=== PATIENT | male | born 1930 | race Caucasian/White ===

== ENCOUNTER 2017-10-14 10:33 | Inpatient (IN) | payer OTHER ==
[~2017-10-14] VITALS: Ht 170.2 cm; Wt 72.5 kg
[2017-10-14] MEDS ORDERED: cloNIDine HCL 0.1 MG TAB PO ONE (10:45)
[2017-10-14 11:16] LABS: Basophils # (auto) 0.1 uL; Eosinophils # (auto) 0.1 uL; Eosinophils % (auto) 1.5 % (0.0-7.0); Hematocrit 41.5 % (41.0-53.0); Hemoglobin 13.7 g/dL (13.5-17.5); Lymphocytes # (auto) 0.6 uL; Lymphocytes % (auto) 9.8 % (10.0-50.0); Mean Corpuscular Hemoglobin 28.5 pg (28.0-32.0); Mean Corpuscular Volume 86.5 fL (80.0-100.0); Monocytes # (auto) 0.8 uL; Monocytes % (auto) 11.4 % (0.0-12.0); Neutrophils % (auto) 76.3 % (37.0-80.0); Platelet Count (auto) 219 10^3/uL (140-450); Red Cell Distribution Width 14.4 % (11.8-14.3); White Blood Cell 6.6 10^3/uL (4.4-10.8)
[2017-10-14 11:30] LABS: Alanine Aminotransferase 14 U/L (16-61); Albumin 3.5 g/dL (3.4-5.0); Alkaline Phosphatase 69 U/L (45-117); Amylase 53 U/L (25-115); Anion Gap 9 (5-15); Aspartate Aminotransferase 9 U/L (15-37); Bilirubin, Total 0.8 mg/dL (0.2-1.0); Blood Urea Nitrogen 16 mg/dL (7-18); Calcium 8.7 mg/dL (8.5-10.1); Carbon Dioxide 25 mmol/L (21-32); Chloride 104 mmol/L (98-107); GFR African American 84 mL/min; GFR Non-African American 69 mL/min; Glucose 96 mg/dL (74-106); Lipase 184 U/L (73-393); Potassium 3.9 mmol/L (3.5-5.1); Sodium 138 mmol/L (136-145); Total Protein 6.8 g/dL (6.4-8.2)
[2017-10-14 11:40] LABS: INR 0.98 (0.9-1.15); Prothrombin Time 10.7 sec (9.37-12.3)
[2017-10-14] MEDS ORDERED: TEMAZEPAM 15 MG CAP PO PRN (12:45)
[2017-10-14] MEDS ORDERED: NITROGLYCERIN 0.4 MG SL TAB SL PRN (12:45)
[2017-10-14] MEDS ORDERED: MORPHINE SULFATE 4 MG/ML SYR/VIAL IV PRN ×2 (12:45)
[2017-10-14] MEDS ORDERED: ONDANSETRON HCL 4 MG/2 ML VIAL IV PRN (12:45)
[2017-10-14] MEDS ORDERED: HYDROcodone-ACET 5/325MG TAB PO PRN (12:45)
[2017-10-14] MEDS ORDERED: DEXTROSE (50%) 50ML SYRG IV PRN (12:45)
[2017-10-14] MEDS ORDERED: cefTRIAXone 1GM/10ml IVPUSH 10 ML IV ONE (13:00)
[2017-10-14] MEDS ORDERED: cloNIDine HCL 0.1 MG TAB PO PRN (13:00)
[2017-10-14] MEDS: FAMOTIDINE 20 MG TAB PO SCH (13:33)
[2017-10-14] MEDS: metroNIDAZOLE 500MG/100ML 100 ML IV SCH ×2 (13:33→22:51)
[2017-10-14] MEDS: SODIUM CHLOR 0.9% PF (SALINE LOCK) 10ML VIAL IV SCH ×2 (14:37→22:51)
[2017-10-14 15:19] VITALS: BP 161/89
[2017-10-14] MEDS: InsuLIN REG 1unit/0.01ml Soln (100units/ml) SC SCH ×2 (17:00→22:00)
[2017-10-14] MEDS: ACCU-CHEK COMFORT CURVE STRIP VI SCH ×2 (17:17→22:52)
[2017-10-14 17:56] LABS: Urine Bacteria NONE SEEN /hpf (None Seen); Urine Blood Negative /uL (Negative); Urine Mucus FEW (None Seen); Urine Specific Gravity 1.013 (1.001-1.035); Urine WBC 3 /hpf (0 - 3)
[2017-10-14] MEDS: TAMSULOSIN HYDROCHLORIDE 0.4 MG CAP PO SCH (18:17)
[2017-10-14 22:00] VITALS: BP 114/63
[2017-10-14] MEDS: ATORVASTATIN 20 MG TAB PO SCH (22:51)
[2017-10-14] MEDS: ASCORBIC ACID 500 MG TAB PO SCH (22:52)
[2017-10-14] MEDS ORDERED: SIMV-8 PO (23:35)
[2017-10-14] MEDS ORDERED: METF-370 PO (23:35)
[2017-10-14] MEDS ORDERED: LISI2.5T47 PO (23:35)
[2017-10-14] MEDS ORDERED: AML5T PO (23:35)
[2017-10-15 05:00] VITALS: BP 118/66
[2017-10-15] MEDS: metroNIDAZOLE 500MG/100ML 100 ML IV SCH (05:22)
[2017-10-15] MEDS: SODIUM CHLOR 0.9% PF (SALINE LOCK) 10ML VIAL IV SCH ×3 (05:23→21:41)
[2017-10-15 06:04] LABS: Basophils # (auto) 0.1 uL; Basophils % (auto) 1.1 % (0.0-2.0); Eosinophils # (auto) 0.1 uL; Eosinophils % (auto) 2.5 % (0.0-7.0); Hematocrit 37.7 % (41.0-53.0); Hemoglobin 12.6 g/dL (13.5-17.5); Lymphocytes # (auto) 0.9 uL; Lymphocytes % (auto) 16.4 % (10.0-50.0); Mean Corpuscular Hgb Conc. 33.5 g/dL (32.0-36.0); Mean Corpuscular Volume 86.5 fL (80.0-100.0); Monocytes # (auto) 0.8 uL; Monocytes % (auto) 13.6 % (0.0-12.0); Neutrophils # (auto) 3.7 uL; Neutrophils % (auto) 66.4 % (37.0-80.0); Nucleated Red Blood Cells % 0.1 %; Platelet Count (auto) 196 10^3/uL (140-450); Red Blood Cells 4.36 10^6/uL (4.5-5.90); Red Cell Distribution Width 14.3 % (11.8-14.3); White Blood Cell 5.5 10^3/uL (4.4-10.8)
[2017-10-15] MEDS: InsuLIN REG 1unit/0.01ml Soln (100units/ml) SC SCH ×4 (06:09→22:00)
[2017-10-15] MEDS: ACCU-CHEK COMFORT CURVE STRIP VI SCH ×4 (06:09→21:42)
[2017-10-15 06:16] LABS: Potassium 4.2 mmol/L (3.5-5.1)
[2017-10-15 06:20] LABS: Calcium 8.8 mg/dL (8.5-10.1)
[2017-10-15 06:29] LABS: Bilirubin, Total 0.6 mg/dL (0.2-1.0); Total Protein 5.7 g/dL (6.4-8.2)
[2017-10-15] MEDS ORDERED: HEPARIN IN NS 1000Units/500mL 1,500 ML ONE (07:18)
[2017-10-15] MEDS ORDERED: IODIXANOL 320MG/ML 100ML BTL IV ONE (07:18)
[2017-10-15] MEDS ORDERED: LIDOCAINE 2%HCL (LOCAL ANESTH.) INJ 20ML MDV ONE (07:18)
[2017-10-15] MEDS ORDERED: ANGIOMAX 250 MG VIAL IV ONE (07:47)
[2017-10-15] MEDS ORDERED: MIDAZOLAM HCL 1MG/1ML-2 ML VIAL ONE (07:48)
[2017-10-15] MEDS ORDERED: fentaNYL CITRATE 100 MCG/2 ML VL ONE (07:48)
[2017-10-15] MEDS ORDERED: SODIUM CHL 0.9% 0 ML ONE (07:48)
[2017-10-15] MEDS ORDERED: VERAPAMIL 2.5MG/ML INJ 2ML VIAL IV ONE (07:48)
[2017-10-15] MEDS ORDERED: HEPARIN SODIUM (PORCINE) 5000 UNITS/ML 1ML VIAL ONE (08:07)
[2017-10-15] MEDS ORDERED: cefTRIAXone 1GM/10ml IVPUSH 10 ML IV SCH (09:00)
[2017-10-15] MEDS: ASCORBIC ACID 500 MG TAB PO SCH ×2 (11:23→21:42)
[2017-10-15] MEDS: ZINC SULFATE 220 MG CAP PO SCH (11:23)
[2017-10-15] MEDS: ACETAMINOPHEN 325 MG TAB PO PRN ×2 (11:24→17:42)
[2017-10-15] MEDS: LISINOPRIL 5 MG TAB PO SCH (11:24)
[2017-10-15] MEDS: FINASTERIDE 5 MG TAB PO SCH (11:24)
[2017-10-15] MEDS: FAMOTIDINE 20 MG TAB PO SCH (11:25)
[2017-10-15] MEDS: MULTIPLE VITAMIN TAB PO SCH (11:25)
[2017-10-15] MEDS: amLODIPine BESYLATE 5 MG TAB PO SCH (11:25)
[2017-10-15 12:21] VITALS: BP 122/58
[2017-10-15] MEDS: SOD CHL 0.45% 1,000 ML IV SCH (14:30)
[2017-10-15] MEDS: TAMSULOSIN HYDROCHLORIDE 0.4 MG CAP PO SCH (17:59)
[2017-10-15] MEDS: ATORVASTATIN 20 MG TAB PO SCH (21:42)
[2017-10-15 22:34] VITALS: BP 131/72
[2017-10-16 05:42] LABS: BUN/Creatinine Ratio 15.5; Potassium 3.9 mmol/L (3.5-5.1)
[2017-10-16] MEDS: SODIUM CHLOR 0.9% PF (SALINE LOCK) 10ML VIAL IV SCH ×2 (06:00→14:00)
[2017-10-16] MEDS: ACCU-CHEK COMFORT CURVE STRIP VI SCH ×3 (06:41→17:00)
[2017-10-16] MEDS: InsuLIN REG 1unit/0.01ml Soln (100units/ml) SC SCH ×3 (06:42→17:00)
[2017-10-16 08:00] VITALS: BP 141/72
[2017-10-16 09:00] VITALS: BP 141/86
[2017-10-16] MEDS ORDERED: IOHEXOL 300 MG/ML 100ML BOTTLE IJ ONE (09:35)
[2017-10-16] MEDS: FINASTERIDE 5 MG TAB PO SCH (10:00)
[2017-10-16] MEDS: MULTIPLE VITAMIN TAB PO SCH (10:00)
[2017-10-16] MEDS: amLODIPine BESYLATE 5 MG TAB PO SCH (10:00)
[2017-10-16] MEDS: ZINC SULFATE 220 MG CAP PO SCH (10:00)
[2017-10-16] MEDS: ASCORBIC ACID 500 MG TAB PO SCH (10:00)
[2017-10-16] MEDS: LISINOPRIL 5 MG TAB PO SCH (10:00)
[2017-10-16] MEDS: FAMOTIDINE 20 MG TAB PO SCH (10:00)
[2017-10-16] MEDS: SOD CHL 0.45% 1,000 ML IV SCH (10:30)
[2017-10-16 13:00] VITALS: BP 141/72
[2017-10-16 17:00] VITALS: BP 141/85
[2017-10-16 17:30] VITALS: BP 141/85
[2017-10-16] MEDS: TAMSULOSIN HYDROCHLORIDE 0.4 MG CAP PO SCH (18:00)
[2017-11-10] MEDS ORDERED: FINA5TAB4 PO (10:07)
[2017-11-10] MEDS ORDERED: TAMS0.4C36 PO (10:07)
== END 2017-10-16 18:15 | disposition home or self-care (01) | DRG 287 ==
LOC: ER 10:33 → TELE 10:34 → TELE-WESTW 21:14
PROVIDERS: ADMIT Internal Medicine; ATTEND Hospitalist
PROC: 4A023N7 Measurement of Cardiac Sampling and Pressure, Left Heart, Percutaneous Approach (ICD-10-PCS; principal; 2017-10-15)
PROC: B2111ZZ Fluoroscopy of Multiple Coronary Arteries using Low Osmolar Contrast (ICD-10-PCS; 2017-10-15)
DX: I25.10 Atherosclerotic heart disease of native coronary artery without angina pectoris (principal); D68.69 Other thrombophilia; E11.22 Type 2 diabetes mellitus with diabetic chronic kidney disease; I48.92 Unspecified atrial flutter; J98.11 Atelectasis; C64.1 Malignant neoplasm of right kidney, except renal pelvis; I13.10 Hypertensive heart and chronic kidney disease without heart failure, with stage 1 through stage 4 chronic kidney disease, or unspecified chronic kidney disease; I48.91 Unspecified atrial fibrillation; K57.30 Diverticulosis of large intestine without perforation or abscess without bleeding; N18.2 Chronic kidney disease, stage 2 (mild); N40.0 Benign prostatic hyperplasia without lower urinary tract symptoms; I70.8 Atherosclerosis of other arteries; E78.5 Hyperlipidemia, unspecified; K40.90 Unilateral inguinal hernia, without obstruction or gangrene, not specified as recurrent; K44.9 Diaphragmatic hernia without obstruction or gangrene; Z79.899 Other long term (current) drug therapy; Z82.49 Family history of ischemic heart disease and other diseases of the circulatory system
CPT/HCPCS: 36415; 71045; 74176; 74178; 80048; 80053; 80202; 81001; 82150; 82962; 83036; 83690; 83880; 84443; 84484; 85025; 85610; 87040; 93005; 93306; 93458; 96365; 99152; J2250; J3490; Q9967

== ENCOUNTER 2017-11-13 12:02 | Inpatient (IN) | payer OTHER ==
[2017-11-10 12:29] LABS: Urine Bacteria NONE SEEN /hpf (None Seen); Urine Blood Negative /uL (Negative); Urine Mucus FEW (None Seen); Urine Specific Gravity 1.027 (1.001-1.035); Urine WBC 34 /hpf (0 - 3)
[2017-11-10 12:32] LABS: Basophils # (auto) 0.1 uL; Basophils % (auto) 1.1 % (0.0-2.0); Eosinophils # (auto) 0.1 uL; Eosinophils % (auto) 2.4 % (0.0-7.0); Hematocrit 41.9 % (41.0-53.0); Hemoglobin 13.7 g/dL (13.5-17.5); Lymphocytes # (auto) 0.9 uL; Lymphocytes % (auto) 14.7 % (10.0-50.0); Mean Corpuscular Hemoglobin 28.6 pg (28.0-32.0); Mean Corpuscular Hgb Conc. 32.6 g/dL (32.0-36.0); Mean Corpuscular Volume 87.7 fL (80.0-100.0); Monocytes # (auto) 0.8 uL; Monocytes % (auto) 13.7 % (0.0-12.0); Neutrophils # (auto) 3.9 uL; Neutrophils % (auto) 68.1 % (37.0-80.0); Platelet Count (auto) 221 10^3/uL (140-450); Red Blood Cells 4.78 10^6/uL (4.5-5.90); Red Cell Distribution Width 15.1 % (11.8-14.3); White Blood Cell 5.8 10^3/uL (4.4-10.8)
[2017-11-10 12:40] LABS: INR 0.98 (0.9-1.15); Partial Thromboplastin Time 27.5 sec (22.64-33.71); Prothrombin Time 10.7 sec (9.37-12.3)
[2017-11-10 12:43] LABS: BUN/Creatinine Ratio 13.8; Calcium 8.6 mg/dL (8.5-10.1); Potassium 3.9 mmol/L (3.5-5.1)
[~2017-11-13] VITALS: Ht 167.6 cm; Wt 74.6 kg
[~2017-11-13 12:02] MED LIST: AML5T PO; FINA5TAB4 PO; LISI2.5T47 PO; METF-370 PO; SIMV-8 PO; TAMS0.4C36 PO
[2017-11-13] MEDS ORDERED: ceFOXitin 2GM/100ML 100 ML IV ONE (12:54)
[2017-11-13] MEDS ORDERED: diphenhdrAMINE HCL 50 MG/1 ML VL IV PRN (15:30)
[2017-11-13] MEDS ORDERED: MORPHINE SULFATE 4 MG/ML SYR/VIAL IV PRN (15:30)
[2017-11-13] MEDS ORDERED: CEFOXITIN SODIUM 1 GM in D5W 5% 50 ML IV SCH (15:30)
[2017-11-13] MEDS ORDERED: DEXTROSE (50%) 50ML SYRG IV PRN (15:30)
[2017-11-13] MEDS ORDERED: ONDANSETRON HCL 4 MG/2 ML VIAL IV PRN (15:30)
[2017-11-13] MEDS ORDERED: PROPOFOL 10 MG/ML 20 ML IV ONE (15:53)
[2017-11-13] MEDS ORDERED: ROCURONIUM 10MG/ML 10ML VIAL IV ONE (15:53)
[2017-11-13] MEDS ORDERED: fentaNYL CITRATE 100 MCG/2 ML VL ONE ×2 (15:53→15:55)
[2017-11-13] MEDS ORDERED: MIDAZOLAM HCL 1MG/1ML-2 ML VIAL ONE (15:53)
[2017-11-13] MEDS ORDERED: BUPIVACAINE 0.25% INJ 50ML VIAL ONE (16:59)
[2017-11-13] MEDS: ACCU-CHEK COMFORT CURVE STRIP VI SCH ×2 (17:00→22:00)
[2017-11-13] MEDS: InsuLIN REG 1unit/0.01ml Soln (100units/ml) SC SCH (17:00)
[2017-11-13] MEDS ORDERED: MORPHINE SULFATE INJECTION 1 ML ONE (17:03)
[2017-11-13] MEDS: MORPHINE SULFATE 4 MG/ML SYR/VIAL ONE ×2 (18:37→18:48)
[2017-11-13] MEDS ORDERED: ATORVASTATIN 20 MG TAB PO SCH (22:00)
[2017-11-13] MEDS ORDERED: InsuLIN REG 1unit/0.01ml Soln (100units/ml) SC SCH (22:00)
[2017-11-13 23:10] VITALS: BP 147/75
[2017-11-13] MEDS: SOD CHL 0.45% 1,000 ML IV SCH ×2 (23:16→23:47)
[2017-11-13] MEDS: ACETAMINOPHEN/CODEINE#3 (300/30mg) TAB PO PRN (23:52)
[2017-11-14 04:28] VITALS: BP 128/79
[2017-11-14 06:15] LABS: BUN/Creatinine Ratio 9.1; Calcium 8.6 mg/dL (8.5-10.1); Potassium 4.7 mmol/L (3.5-5.1)
[2017-11-14] MEDS: ACCU-CHEK COMFORT CURVE STRIP VI SCH ×3 (06:51→17:00)
[2017-11-14] MEDS: InsuLIN REG 1unit/0.01ml Soln (100units/ml) SC SCH ×3 (06:51→17:00)
[2017-11-14] MEDS: SOD CHL 0.45% 1,000 ML IV SCH (07:16)
[2017-11-14 08:00] VITALS: BP 135/71
[2017-11-14] MEDS ORDERED: metFORMIN HYDROCHLORIDE 500 MG TAB PO SCH (08:00)
[2017-11-14 09:00] VITALS: BP 126/63
[2017-11-14] MEDS ORDERED: LISINOPRIL 5 MG TAB PO SCH (10:00)
[2017-11-14] MEDS ORDERED: PATIENTS OWN MEDICATION (Simvastatin 20 MG) PO SCH (10:00)
[2017-11-14] MEDS ORDERED: amLODIPine BESYLATE 5 MG TAB PO SCH (10:00)
[2017-11-14] MEDS ORDERED: PATIENTS OWN MEDICATION (Lisinopril 5 MG) PO SCH (10:00)
[2017-11-14] MEDS ORDERED: FINASTERIDE 5 MG TAB PO SCH (10:00)
[2017-11-14 12:00] VITALS: BP 133/64
[2017-11-14 14:03] VITALS: BP 133/69
[2017-11-14 16:00] VITALS: BP 131/62
[2017-11-14] MEDS: ACETAMINOPHEN/CODEINE#3 (300/30mg) TAB PO PRN (16:10)
[2017-11-14] MEDS ORDERED: TAMSULOSIN HYDROCHLORIDE 0.4 MG CAP PO SCH (18:00)
== END 2017-11-14 18:00 | disposition home or self-care (01) | DRG 657 ==
LOC: SUR 12:02 → WEST WING 12:03
PROVIDERS: ADMIT Urology; ATTEND Urology
PROC: 8E0W4CZ Robotic Assisted Procedure of Trunk Region, Percutaneous Endoscopic Approach (ICD-10-PCS; 2017-11-13)
PROC: 0TT04ZZ Resection of Right Kidney, Percutaneous Endoscopic Approach (ICD-10-PCS; principal; 2017-11-13 15:38)
DX: C64.1 Malignant neoplasm of right kidney, except renal pelvis (principal); K40.00 Bilateral inguinal hernia, with obstruction, without gangrene, not specified as recurrent; I48.91 Unspecified atrial fibrillation; I11.9 Hypertensive heart disease without heart failure; N40.1 Benign prostatic hyperplasia with lower urinary tract symptoms; Z80.8 Family history of malignant neoplasm of other organs or systems; Z82.49 Family history of ischemic heart disease and other diseases of the circulatory system; Z87.891 Personal history of nicotine dependence
CPT/HCPCS: 36415; 80048; 81001; 82962; 85025; 85610; 85730; 86850; 86900; 86901; 87086; J0694; J1815; J2250; J2405; J2704; J3490; J7060

== ENCOUNTER 2018-05-26 06:28 | Inpatient (IN) | payer OTHER ==
[2018-05-22 09:31] LABS: Basophils # (auto) 0.1 uL; Basophils % (auto) 1.3 % (0.0-2.0); Eosinophils # (auto) 0.1 uL; Eosinophils % (auto) 2.2 % (0.0-7.0); Hematocrit 40.8 % (41.0-53.0); Hemoglobin 13.3 g/dL (13.5-17.5); Lymphocytes # (auto) 0.9 uL; Lymphocytes % (auto) 15.9 % (10.0-50.0); Mean Corpuscular Hemoglobin 29.2 pg (28.0-32.0); Mean Corpuscular Hgb Conc. 32.7 g/dL (32.0-36.0); Mean Corpuscular Volume 89.5 fL (80.0-100.0); Monocytes # (auto) 0.8 uL; Monocytes % (auto) 13.2 % (0.0-12.0); Neutrophils # (auto) 3.9 uL; Neutrophils % (auto) 67.4 % (37.0-80.0); Nucleated Red Blood Cells % 0.1 %; Platelet Count (auto) 243 10^3/uL (140-450); Red Blood Cells 4.55 10^6/uL (4.5-5.90); Red Cell Distribution Width 14.8 % (11.8-14.3); White Blood Cell 5.8 10^3/uL (4.4-10.8)
[2018-05-22 09:44] LABS: Urine Bacteria FEW /hpf (None Seen); Urine Blood Negative /uL (Negative); Urine Specific Gravity 1.018 (1.001-1.035); Urine WBC 10 /hpf (0 - 3)
[2018-05-22 09:46] LABS: INR 0.94 (0.9-1.15); Partial Thromboplastin Time 27.5 sec (23.78-33.04); Prothrombin Time 10.1 sec (9.27-12.13)
[2018-05-22 10:14] LABS: Albumin 3.6 g/dL (3.4-5.0); BUN/Creatinine Ratio 14.1; Bilirubin, Total 0.6 mg/dL (0.2-1.0); Potassium 4.5 mmol/L (3.5-5.1); Total Protein 6.9 g/dL (6.4-8.2)
[~2018-05-26] VITALS: Ht 167.6 cm; Wt 74.1 kg
[~2018-05-26 06:28] MED LIST changes: +APIX5TAB OR
[2018-05-26] MEDS ORDERED: BUPIVACAINE 0.25% INJ 50ML VIAL ONE (06:42)
[2018-05-26] MEDS ORDERED: ceFAZolin 1GM VL ONE (06:42)
[2018-05-26] MEDS ORDERED: LIDOCAINE 1% HCL (LOCAL ANESTH.) INJ 20ML MDV ONE (06:42)
[2018-05-26] MEDS ORDERED: ceFAZolin 1GM/50ML 50 ML IV ONE (07:14)
[2018-05-26] MEDS ORDERED: SUCCINYLCHOLINE CHLORIDE 20 MG/ML 10ML VIAL IV ONE (07:19)
[2018-05-26] MEDS ORDERED: fentaNYL CITRATE 100 MCG/2 ML VL ONE (07:30)
[2018-05-26] MEDS ORDERED: MIDAZOLAM HCL 1MG/1ML-2 ML VIAL ONE (07:30)
[2018-05-26] MEDS ORDERED: MEPERIDINE HCL (50 MG/ML) 1 ML VIAL ONE (07:30)
[2018-05-26] MEDS ORDERED: PROPOFOL 10 MG/ML 20 ML IV ONE (07:38)
[2018-05-26] MEDS ORDERED: DEXAMETHASONE SOD PHOS 10MG/1ML VIAL INJ ONE (07:38)
[2018-05-26] MEDS ORDERED: NEOSTIGMINE 1 MG/ML INJ (10mg/10ML VIAL) ONE (07:54)
[2018-05-26] MEDS ORDERED: ETOMIDATE (2MG/ML) 20ML VIAL IV ONE (07:54)
[2018-05-26] MEDS ORDERED: GLYCOPYRROLATE 0.2 MG/ML 1ML VIAL ONE (07:54)
[2018-05-26] MEDS ORDERED: LABETALOL HCL 5 MG/ML 4ML SYRINGE IV PRN (08:30)
[2018-05-26] MEDS ORDERED: HYDROmorphone HCL 2 MG/ML VL IV PRN ×2 (08:30→11:30)
[2018-05-26] MEDS ORDERED: ePHEDrine SULFATE 50 MG/ML AMP IV PRN (08:30)
[2018-05-26] MEDS ORDERED: ONDANSETRON HCL 4 MG/2 ML VIAL IV ONE (08:30)
[2018-05-26] MEDS ORDERED: ACCU-CHEK COMFORT CURVE STRIP VI ONE (08:30)
[2018-05-26] MEDS ORDERED: KETOROLAC TROMETH 30 MG/ML 1ML VIAL IV ONE (08:30)
[2018-05-26] MEDS ORDERED: MORPHINE SULFATE 4 MG/ML SYR/VIAL IV PRN ×2 (08:30→11:30)
[2018-05-26] MEDS ORDERED: MIDAZOLAM HCL 1MG/1ML-2 ML VIAL IV PRN (08:30)
[2018-05-26] MEDS ORDERED: MORPHINE SULFATE 4 MG/ML SYR/VIAL IV ONE (10:00)
[2018-05-26] MEDS ORDERED: NITROGLYCERIN 0.4 MG SL TAB SL PRN (11:30)
[2018-05-26 17:00] VITALS: BP 137/77
[2018-05-26 22:00] VITALS: BP 150/83
[2018-05-27 05:05] VITALS: BP 145/93
[2018-05-27 08:00] VITALS: BP 135/72
[2018-05-27 13:00] VITALS: BP 145/70
[2018-05-27 16:00] VITALS: BP 143/73
== END 2018-05-27 17:45 | disposition home or self-care (01) | DRG 351 ==
LOC: SUR 06:28 → TELE-EAST 09:28
PROVIDERS: ADMIT Surgery; ATTEND Internal Medicine
PROC: 8E0W4CZ Robotic Assisted Procedure of Trunk Region, Percutaneous Endoscopic Approach (ICD-10-PCS; 2018-05-26)
PROC: 0YUA4JZ Supplement Bilateral Inguinal Region with Synthetic Substitute, Percutaneous Endoscopic Approach (ICD-10-PCS; principal; 2018-05-26 07:19)
DX: K40.20 Bilateral inguinal hernia, without obstruction or gangrene, not specified as recurrent (principal); N17.9 Acute kidney failure, unspecified; I48.2 Chronic atrial fibrillation; I12.9 Hypertensive chronic kidney disease with stage 1 through stage 4 chronic kidney disease, or unspecified chronic kidney disease; N18.3 Chronic kidney disease, stage 3 (moderate); E11.22 Type 2 diabetes mellitus with diabetic chronic kidney disease; Z86.73 Personal history of transient ischemic attack (TIA), and cerebral infarction without residual deficits; Z79.01 Long term (current) use of anticoagulants; Z85.528 Personal history of other malignant neoplasm of kidney; Z90.5 Acquired absence of kidney; Z87.891 Personal history of nicotine dependence
CPT/HCPCS: 36415; 80053; 81001; 82962; 85025; 85610; 85730; 86850; 86900; 86901; C1713; C1781; J0330; J0690; J1100; J1885; J2001; J2250; J2704; J3490

== ENCOUNTER 2019-06-22 07:42 | Emergency (ER) | payer OTHER ==
[~2019-06-22] VITALS: Ht 170.2 cm; Wt 68.0 kg
[2019-06-22 08:09] LABS: Urine Bacteria NONE SEEN /hpf (None Seen); Urine Blood Negative /uL (Negative); Urine Specific Gravity 1.005 (1.001-1.035); Urine WBC 1 /hpf (0 - 3)
[2019-06-22 08:10] VITALS: BP 167/85
[2019-06-22 08:21] LABS: Basophils # (auto) 0.1 uL; Basophils % (auto) 1.3 % (0.0-2.0); Eosinophils # (auto) 0.2 uL; Eosinophils % (auto) 2.8 % (0.0-7.0); Hematocrit 39.6 % (41.0-53.0); Hemoglobin 13.2 g/dL (13.5-17.5); Lymphocytes % (auto) 12.2 % (10.0-50.0); Mean Corpuscular Hemoglobin 28.5 pg (28.0-32.0); Mean Corpuscular Hgb Conc. 33.2 g/dL (32.0-36.0); Mean Corpuscular Volume 85.8 fL (80.0-100.0); Monocytes # (auto) 0.9 uL; Neutrophils # (auto) 5.6 uL; Neutrophils % (auto) 71.7 % (37.0-80.0); Nucleated Red Blood Cells % 0.1 %; Platelet Count (auto) 230 10^3/uL (140-450); Red Blood Cells 4.62 10^6/uL (4.5-5.90); Red Cell Distribution Width 15.1 % (11.8-14.3); White Blood Cell 7.8 10^3/uL (4.4-10.8)
[2019-06-22 08:39] LABS: Albumin 3.5 g/dL (3.4-5.0); BUN/Creatinine Ratio 14.7; Calcium 8.3 mg/dL (8.5-10.1); Potassium 3.9 mmol/L (3.5-5.1)
[2019-06-22 08:42] LABS: Bilirubin, Total 0.8 mg/dL (0.2-1.0); Total Protein 6.7 g/dL (6.4-8.2)
[2019-06-22] MEDS ORDERED: MORPHINE SULFATE 4 MG/ML SYR/VIAL IV ONE (08:45)
[2019-06-22] MEDS ORDERED: ONDANSETRON HCL 4 MG/2 ML VIAL IV ONE (08:45)
== END 2019-06-22 10:16 | disposition home or self-care (01) ==
LOC: ER 07:43
DX: R10.30 Lower abdominal pain, unspecified (principal); I12.9 Hypertensive chronic kidney disease with stage 1 through stage 4 chronic kidney disease, or unspecified chronic kidney disease; E11.22 Type 2 diabetes mellitus with diabetic chronic kidney disease; N18.9 Chronic kidney disease, unspecified; I48.91 Unspecified atrial fibrillation; E78.00 Pure hypercholesterolemia, unspecified; Z86.73 Personal history of transient ischemic attack (TIA), and cerebral infarction without residual deficits; Z79.899 Other long term (current) drug therapy
CPT/HCPCS: 36415; 74176; 80053; 81001; 83690; 85025; 93005; 94761; 96374; 96375; 99284; J2270; J2405